=== PATIENT | female | born 1945 | race Caucasian/White ===

== ENCOUNTER → 2017-11-26 | Outpatient (CLI) | payer OTHER ==
[~2017-11-26] MED LIST: ADULT LOW DOSE81 MG PO; ARIXTRA; ASPIRIN325 PO; BIOTIN2500 MCG PO; BUDEPRION SR150 MG PO; COLACE100 MG PO; Calcium Citrate PO; FISH OIL 1,001000 M2 PO; FISH OIL 1,2001 EAC4 PO; FLEXERIL; LEXAPRO 10 MG T10 MG PO; LEXAPRO20 MG PO; LISINOPRIL20 MG PO; METAMUCIL PAC1 UDPKT PO; MIRALAX17 GM PO; NASONEX17 GM NASAL; OXYCODONE HCL 55 MG PO; OXYCODONE HCL5 M1; PERCOCET 5-3251 EACH; PERCOCET PO; QVAR HFA 440 MCG/UN1 INH; QVAR8.7 G1 NASAL; SIMVASTATIN10 MG PO; TRAMADOL 50 MG50 MG PO; TRANDOLAPRIL2 MG PO; TYLENOL EX-STR500 M2 PO; VENTOLIN HFA 1818 GM INH; VERAPAMIL ER120 M1 PO; VITAMIN B12 PO; VITAMIN D31000 UNI2 PO; XARELTO10 MG PO; ZOFRAN4 MG PO; ZYRTEC 10 MG TA10 M1 PO; [UNRECOGNIZED DRUG - CODE]
== END ==
LOC: M.RAD 14:48
DX: Z12.31 Encounter for screening mammogram for malignant neoplasm of breast (principal)

== ENCOUNTER → 2018-12-11 | Outpatient (CLI) | payer OTHER ==
[~2018-12-11] MED LIST changes: +ADVIL LIQUI-GE200 MG PO; +EFFEXOR XR75 MG PO; +GABAPENTIN 100100 MG PO; +LIORESAL 10 MG10 MG PO; +NORCO 5-325 TA1 EACH PO; +QVAR REDIHALE10.6 G1 NASAL; -QVAR8.7 G1 NASAL; +VENLAFAXINE H37.5 M2 PO; +VERAPAMIL E.R240 M1 PO; -ZYRTEC 10 MG TA10 M1 PO; +ZYRTEC 10 MG TA10 MG PO
== END ==
LOC: M.RAD 10:30
DX: Z12.31 Encounter for screening mammogram for malignant neoplasm of breast (principal)

== ENCOUNTER → 2020-03-03 | Outpatient (CLI) | payer OTHER | LOC: M.RAD 13:00 | PROVIDERS: ATTEND Internal Medicine | DX: Z12.31 Encounter for screening mammogram for malignant neoplasm of breast (principal) ==

== ENCOUNTER → 2021-03-14 | Outpatient (CLI) | payer OTHER | LOC: M.RAD 09:53 | PROVIDERS: ATTEND Internal Medicine | DX: Z12.31 Encounter for screening mammogram for malignant neoplasm of breast (principal); N64.89 Other specified disorders of breast ==